=== PATIENT | male | born 1970 | race Caucasian/White ===

== ENCOUNTER 2016-10-05 06:38 | Emergency (ER) | payer OTHER | END 2016-10-05 08:25 | disposition home or self-care (01) | LOC: FER 06:38 | DX: S42.012A Anterior displaced fracture of sternal end of left clavicle, initial encounter for closed fracture (principal); S50.812A Abrasion of left forearm, initial encounter; I11.9 Hypertensive heart disease without heart failure; E78.5 Hyperlipidemia, unspecified; Z79.82 Long term (current) use of aspirin; Z79.899 Other long term (current) drug therapy; Z95.5 Presence of coronary angioplasty implant and graft; W19.XXXA Unspecified fall, initial encounter; Y93.K1 Activity, walking an animal; Y92.009 Unspecified place in unspecified non-institutional (private) residence as the place of occurrence of the external cause | CPT/HCPCS: 73000; 99283 ==